=== PATIENT | female | born 1960 | race Caucasian/White ===

== ENCOUNTER 2018-03-26 10:30 | Emergency (ER) | payer MEDICARE, OTHER ==
[2018-03-26] MEDS: HYDROCODONE/APAP (5/325) TAB PO (11:18)
[2018-03-26] MEDS: KETOROLAC 30 MG INJ IM (11:19)
== END 2018-03-26 12:48 | disposition home or self-care (01) ==
LOC: FTE 10:30
DX: M54.5 Low back pain (principal)
CPT/HCPCS: 72100; 96372; 99284-25